=== PATIENT | female | born 1985 | race Two or more races ===

== ENCOUNTER 2019-04-16 04:34 | Inpatient (IN) | payer OTHER ==
--- NOTE | 2019-04-16 04:40 | NUR ---
MS/RN NOTES RECEIVED PT. DIRECT ADMIT FROM [facility]. PT. IS AWAKE, ALERT AND ORIENTED X3. MOSTLY [place] SPEAKING. BREATHING EVEN AND UNLABORED ON ROOM AIR. NO SOB, RESPIRATORY DISTRESS OR COMPLAINTS OF PAIN NOTED AT THIS TIME. PT. STATES SHE WAS HAVING ABDOMINAL PAIN 5/10 EARLIER BUT IT STOPPED AT THIS TIME. PT. WITH LEFT AC 20 GAUGE IV SALINE LOCK PRESENT, PATENT AND INTACT. BED LOCKED AND IN LOWEST POSITION, SIDE RAILS UP X2, CALL LIGHT WITHIN REACH, WILL CONTINUE TO MONITOR.
[2019-04-16 04:50] VITALS: BP 113/62
--- NOTE | 2019-04-16 05:10 | NUR ---
MS/RN NOTES CALLED AND NOTIFIED [employer]DS MANAGEMENT ENGINEER DR. LUCIO OF PT. ARRIVAL. PT. STATES SHE DOESN'T TAKE ANY HOME MEDICATIONS AND HAS NO COMPLAINTS OF PAIN AT THIS TIME. PER DR. LUCIO OK, I WILL TAKE A LOOK. AWAITING ADMISSION ORDERS. WILL CONTINUE TO MONITOR.
[2019-04-16] MEDS ORDERED: ONDANSETRON HCL/PF 4 MG/2 ML VIAL IVP PRN (05:30)
[2019-04-16] MEDS ORDERED: ZOLPIDEM TARTRATE 5 MG TABLET PO PRN (05:30)
[2019-04-16] MEDS ORDERED: MORPHINE SULFATE INJ 2 MG/ML DISP.SYRIN IV PRN (05:30)
[2019-04-16] MEDS ORDERED: MAG HYDROX/AL HYDROX/SIMETH 30 ML UDC PO PRN (05:30)
[2019-04-16] MEDS ORDERED: MAGNESIUM HYDROXIDE 30 ML UDC PO PRN (05:30)
[2019-04-16] MEDS ORDERED: ACETAMINOPHEN 325 MG TABLET PO PRN (05:30)
[2019-04-16] MEDS ORDERED: HYDROCODONE/APAP 5/325MG 1 EACH TABLET PO PRN (05:30)
[2019-04-16] MEDS ORDERED: Z GUARD REMEDY 2 OZ OINT TP PRN (05:30)
--- NOTE | 2019-04-16 05:30 | NUR ---
TELE/RN NOTES PLACED EXTERNAL CONTRACTOR GENERAL ENGINEERING ON PT. CURRENT RHYTHM = SINUS RHYTHM HR 60. WILL CONTINUE TO MONITOR.
[2019-04-16] MEDS ORDERED: PIPERACILLIN /TAZOBACTAM 2.25 G VIAL IV ONE (05:43)
[2019-04-16] MEDS ORDERED: PIPERACILLIN /TAZOBACTAM 4.5 G in IV D5W 50 ML IV SCH (06:00)
[2019-04-16] MEDS: IV NS 0.9% 1,000 ML IV PRN ×2 (06:17→18:20)
--- NOTE | 2019-04-16 06:19 | NUR ---
TELE/RN NOTES PT. HAS ZOSYN 4.5G IVPB IN 50 ML NS ORDERED Q6 HOURS SCHEDULED FOR 0600. PER CHARGE NURSE KAYLI MEDICATION IS ONLY AVAILABLE 2.25G IVPB IN 50ML NS. CHARGE NURSE KAYLI PROVIDED 2 BAGS OF 2.25G ZOSYN TO BE ADMINISTERED TO PT. BACK TO BACK TO PROVIDE THE PT. WITH 4.5G ZOSYN. ADMINISTERED TO PT. BAG 1 OF 2. ONCE INFUSED WILL ADMINISTER TO PT. BAG 2 OF 2. WILL CONTINUE TO MONITOR.
--- NOTE | 2019-04-16 06:50 | NUR ---
TELE/RN NOTES PT. IS LYING IN BED RESTING. BREATHING EVEN AND UNLABORED ON ROOM AIR. NO SOB, RESPIRATORY DISTRESS OR COMPLAINTS OF PAIN NOTED AT THIS TIME. PT. WITH EXTERNAL PHARMACY DATA ANALYST PRESENT AND INTACT CURRENT RHYTHM = SINUS JOSE G HR 58. PT. WITH LEFT AC 20 GAUGE IV PRESENT, PATENT AND INTACT ADMINISTERING TO PT. IV NS @ 125 ML/HR. ALL PT. NEEDS MET. BED LOCKED AND IN LOWEST POSITION, SIDE RAILS UP X2, CALL LIGHT WITHIN REACH, WILL ENDORSE TO DAYSHIFT NURSE FOR CONTINUITY OF CARE.
--- NOTE | 2019-04-16 07:30 | NUR ---
MS RN RECEIVED ON BED, AWAKE,ALERT,ORIENTED X3,NOT IN ANY FORM OF DISTRESS, RESPIRATIONS EVEN ND UNLABORED,NO SOB NOTED, LUNGS ARE CLEAR,ABDOMEN SOFT,POSITIVE BOWEL SOUNDS,DENIES PAIN AT THIS TIME, WILL MONITOR PATIENT'S CONDITION.
[2019-04-16 08:00] VITALS: BP 103/63
[2019-04-16 08:02] LABS: BASOPHILS % (AUTO) 0.2 % (0.0-2.0); EOSINOPHILS % (AUTO) 0.9 % (0.0-6.0); HEMATOCRIT 36 % (33-45); HEMOGLOBIN 12.2 g/dL (11.5-14.8); LYMPHOCYTES # (AUTO) 1.8 /CMM (0.8-4.8); LYMPHOCYTES % (AUTO) 21.8 % (20.0-44.0); MEAN CORPUSCULAR HGB CONC 34 g/dl (31.0-36.0); MEAN CORPUSCULAR VOLUME 90 fL (82-100); MONOCYTES # (AUTO) 0.4 /CMM (0.1-1.30); MONOCYTES % (AUTO) 5.3 % (2.0-12.0); NEUTROPHILS % (AUTO) 71.8 % (43.0-81.0); PLATELET COUNT (AUTO) 148 /CMM (150-450); RED BLOOD CELL COUNT(AUTO) 3.96 MIL/uL (4.0-5.2); WHITE BLOOD COUNT (AUTO) 8.3 K/uL (4.3-11.0)
[2019-04-16 08:14] LABS: ALBUMIN 2.8 g/dL (3.4-5.0); BILIRUBIN,TOTAL 0.4 mg/dL (0.2-1.0); CALCIUM, SERUM 7.9 mg/dL (8.5-10.1); CREATININE 0.6 mg/dL (0.6-1.3); MAGNESIUM 1.9 mg/dL (1.8-2.4); PHOSPHORUS 3.5 mg/dL (2.5-4.9); POTASSIUM 3.6 mmol/L (3.5-5.1); TOTAL PROTEIN, SERUM 6.4 g/dL (6.4-8.2)
--- NOTE | 2019-04-16 11:00 | NUR ---
MS RN WAS SEEN BY LAVELLE TODD,ALL NEEDS ATTENDED.
[2019-04-16] MEDS: PIPERACILLIN /TAZOBACTAM 3.375 G in IV D5W 100 ML IV SCH ×2 (11:32→19:51)
[2019-04-16 16:08] VITALS: BP 100/64
--- NOTE | 2019-04-16 18:30 | NUR ---
MS RN DENIES PAIN, DIET ADVANCE TO FULL LIQUIDS ORDERED.
--- NOTE | 2019-04-16 18:49 | NUR ---
MS RN ON BED,NO DISTRESS NOTED,ALL NEEDS ATTENDED.
--- NOTE | 2019-04-16 19:00 | NUR ---
MS RN OPENING NOTES Received patient in bed, alert, oriented x 4, family at bedside. Breathing even and unlabored. Not in any distress, on room air. No complaints at this time. Peripheral IV infusing at 125mL/hr. Safety measures in place; call light within reach, bed in low, locked position. Will continue to monitor accordingly
[2019-04-16 20:00] VITALS: BP 106/64
[2019-04-16 20:25] VITALS: BP 106/69
--- NOTE | 2019-04-16 21:50 | NUR ---
RN NOTES Urine sample obtained. Sent to lab
[2019-04-17] MEDS: PIPERACILLIN /TAZOBACTAM 3.375 G in IV D5W 100 ML IV SCH ×3 (04:14→20:12)
--- NOTE | 2019-04-17 06:35 | NUR ---
MS RN CLOSING NOTES Patient resting in bed, alert, oriented x 4. Breathing even and unlabored. Not in any distress, on room air. IV zosyn currently running at 25mL/Hr. No complaints at this time. No acute changes overnight. Safety measures in place. Will endorse VINOD to AM RN
[2019-04-17 06:42] LABS: BASOPHILS % (AUTO) 0.4 % (0.0-2.0); HEMATOCRIT 35 % (33-45); HEMOGLOBIN 12.1 g/dL (11.5-14.8); LYMPHOCYTES # (AUTO) 2.3 /CMM (0.8-4.8); MEAN CORPUSCULAR HGB CONC 35 g/dl (31.0-36.0); MEAN CORPUSCULAR VOLUME 90 fL (82-100); MONOCYTES # (AUTO) 0.4 /CMM (0.1-1.30); MONOCYTES % (AUTO) 8.5 % (2.0-12.0); NEUTROPHILS # (AUTO) 1.8 /CMM (1.8-8.9); NEUTROPHILS % (AUTO) 39.1 % (43.0-81.0); PLATELET COUNT (AUTO) 152 /CMM (150-450); RED BLOOD CELL COUNT(AUTO) 3.89 MIL/uL (4.0-5.2); WHITE BLOOD COUNT (AUTO) 4.7 K/uL (4.3-11.0)
[2019-04-17 06:48] LABS: CREATININE 0.7 mg/dL (0.6-1.3); PHOSPHORUS 3.5 mg/dL (2.5-4.9); POTASSIUM 3.6 mmol/L (3.5-5.1)
--- NOTE | 2019-04-17 07:40 | NUR ---
MS RN RECEIVED ON BED, AWAKE,ALERT,ORIENTED X4,NOT IN ANY FORM OF DISTRESS, RESPIRATIONS EVEN AND UNLABORED,NO SOB NOTED, DENIES PAIN AT THIS TIME,ALL NEEDS ATTENDED.
[2019-04-17 08:00] VITALS: BP 110/66
--- NOTE | 2019-04-17 08:05 | NUR ---
MS BHATTI BREAKFAST SERVED, ADVANCE TO FULL LIQUIDS, TOLERATED WELL.
--- NOTE | 2019-04-17 11:20 | NUR ---
MS DAVY WAS SEEN BY LAVELLE Modi/ ORDERS MADE AND CARRIED OUT.
[2019-04-17] MEDS: IV NS 0.9% 1,000 ML IV PRN (11:43)
[2019-04-17 13:48] LABS: OCCULT BLOOD STOOL NEGATIVE (NEGATIVE)
[2019-04-17 16:00] VITALS: BP 112/66
--- NOTE | 2019-04-17 18:42 | NUR ---
MS RN ON BED, NO DISTRESS NOTED,ALL NEEDS ATTENDED.
--- NOTE | 2019-04-17 19:30 | NUR ---
RN PM OPENING NOTES. PATIENT SEEN. SITTING AT SIDE OF BED. DENIES PAIN OR DISCOMFORT. IVF INFUSING TO LAC AT 125ML PER HOUR NO S/S OF INFILTRATION. REVIEWED POC WITH ASSISTANCE FROM FABIAN COCHRAN. PATIENT BURMESE SPEAKING ONLY. BED LOCKED. DOWN. SRX2 VERBALIZED UNDERSTANDING TO CALL FOR ASSISTANCE NEEDED. CALL LIGHT IN REACH.
[2019-04-17 20:00] VITALS: BP 117/69
[2019-04-18] MEDS: IV NS 0.9% 1,000 ML IV PRN (02:04)
[2019-04-18] MEDS: PIPERACILLIN /TAZOBACTAM 3.375 G in IV D5W 100 ML IV SCH ×2 (04:11→11:39)
--- NOTE | 2019-04-18 07:00 | NUR ---
MS RN PM CLOSING NOTE ON BED SEEN WITH EYES CLOSED, BREATHING NON LABORED, NO DISTRESS NOTED,ALL NEEDS ATTENDED. IV INFUSIGN TO LEFT AC WITH NO S/S OF INFILTRATION. WILL ENDORSE TO DAY FOR VINOD.
--- NOTE | 2019-04-18 07:30 | NUR ---
RN OPENING NOTES RECEIVE PATIENT IN BED, AWAKE AND ORIENTED X4. CZECH SPEAKING. NO PAIN OR ACUTE DISTRESS AT THIS TIME. RESPIRATION EVEN AND UNLABORED. SKIN IS DRY WARM TO TOUCH. PATIENT ABLE TO MAKE NEEDS KNOWN. NOTED WITH IV ACCESS ON LEFT AC #20G. NO S/S OF INFILTRATION OR INFECTION. FLUSHING WELL. NORMAL SALINE RUNNING AT 125 CC/HR. ALL NEEDS ANTICIPATED. KEPT CLEAN AND DRY. CALL LIGHT WITHIN REACHED. PLAN OF CARE DISCUSSED. BED LOCKED AND IN LOWEST POSITION. SAFETY MAINTAINED. WILL CONTINUE PLAN OF CARE.
[2019-04-18 08:00] VITALS: BP 119/72
[2019-04-18] MEDS ORDERED: METR500T PO (09:37)
[2019-04-18] MEDS ORDERED: CIPR-262 PO (09:37)
[2019-04-18 16:04] VITALS: BP 109/53
--- NOTE | 2019-04-18 16:20 | NUR ---
MANAGER RESPIRATORY NOTES OF PATIENT ARRIVED AT THE UNIT. ALL DISCHARGE PAPERS WAS EXPLAINED AND WAS SIGNED BY PATIENT. PRESCRIPTION FOR HER ANTIBIOTIC WAS GIVEN. BELONGINGS WAS GIVEN AND WAS SIGNED WELL. PATIENT REFUSED TO TAKE PHOTOS. EXPLAINED THE PURPOSE OF TAKING PICTURES, PATIENT STILL REFUSED. PATIENT WAS ABLE TO WALK OUT OF THE UNIT WITH . PATIENT WAS IN STABLE CONDITION WHEN SHE LEFT THE UNIT.
== END 2019-04-18 16:30 | disposition home or self-care (01) | DRG 254 ==
LOC: TELE 04:34 → MED 08:53
PROVIDERS: ADMIT Nurse Practitioner Acute Care; ATTEND Nurse Practitioner Acute Care
DX: K58.9 Irritable bowel syndrome, unspecified (principal); K65.9 Peritonitis, unspecified; E44.0 Moderate protein-calorie malnutrition; E88.09 Other disorders of plasma-protein metabolism, not elsewhere classified; Z87.448 Personal history of other diseases of urinary system; E87.6 Hypokalemia
CPT/HCPCS: 36415; 80048-TC; 80053-TC; 80061-TC; 82272-TC; 83735-TC; 84100-TC; 84703-TC; 85025-TC; 87081-TC; G0378; J2270; J2543; J7030; J7060